=== PATIENT | male | born 1950 | race Caucasian/White ===

== ENCOUNTER 2020-05-01 | Outpatient (REF) | payer MEDICARE, SELFPAY ==
[2020-05-01 11:20] LABS: MANUAL DIFF FLAG NO
[2020-05-01 11:24] LABS: Basophils Absolute Auto 0.1 X10*3/uL (0.0-0.2); Eosinophils Absolute Auto 0.2 X10*3/uL (0.0-0.4); Hematocrit 33.8 % (42-52); Hemoglobin 11.1 g/dl (14.0-18.0); Imm Gran Abs Auto 0.02 X10*3/uL (0.00-0.03); Imm Gran Pct Auto 0.3 % (0.0-0.4); Lymphocytes Absolute Auto 1.2 X10*3/uL (1.2-4.9); Lymphocytes Percent Auto 20.1 % (20-40); Mean Corpuscular HGB Conc 32.8 g/dl (31.0-36.0); Mean Corpuscular Hemoglobin 29.1 pg (27.0-33.0); Mean Corpuscular Volume 88.7 fL (80-98); Mean Platelet Volume 12.3 fL (9.4-12.4); Monocytes Absolute Auto 0.5 X10*3/uL (0.1-1.2); Monocytes Percent Auto 9.1 % (2-11); Neutrophils Absolute Auto 3.9 X10*3/uL (2.0-8.3); Neutrophils Percent Auto 65.5 % (45-73); Platelet Count 141 X10*3/uL (160-400); Red Blood Count 3.81 X10*6/uL (4.60-5.80); White Blood Count 5.9 X10*3/uL (4.8-10.8)
[2020-05-01 11:48] LABS: Alanine Aminotransferase 21 U/L (0-40); Albumin Level 3.6 g/dL (3.5-5.0); Alkaline Phosphatase 109 U/L (39-117); Anion Gap 10 (12-20); Aspartate Amino Transferase 16 U/L (5-37); Blood Urea Nitrogen 22 mg/dL (9-16); Calcium 8.4 mg/dL (8.4-10.2); Carbon Dioxide 27 mmol/L (22-29); Chloride 108 mmol/L (96-108); Estimated Glomerular Filt Rate > 60; Glucose Fasting 88 mg/dL (60-99); Potassium 3.7 mmol/l (3.3-5.1); Sodium 141 mmol/L (135-145); Total Protein 5.9 g/dL (6.5-8.0)
[2020-05-01 12:11] LABS: Prostate Specific Antigen Scr 3.59 ng/mL (<0.05-4.0)
== END 2020-05-01 00:01 | disposition home or self-care (01) ==
LOC: HO.HSHHMC
PROVIDERS: Visit Provider Internal Medicine Interventional Cardiology
DX: I10 Essential (primary) hypertension (principal); Z12.5 Encounter for screening for malignant neoplasm of prostate; E78.5 Hyperlipidemia, unspecified; I25.10 Atherosclerotic heart disease of native coronary artery without angina pectoris
CPT/HCPCS: 36415; 80053; 84153; 85025

== ENCOUNTER 2020-05-12 | Outpatient (REF) | payer MEDICARE, SELFPAY ==
[2020-05-12 13:39] LABS: Iron 72 mcg/dL (45-160); Percent Iron Saturation 18 % (15-50); Total Iron Binding Capacity 395 mcg/dL (228-428); Unsaturated Iron Binding 323 ug/dL
[2020-05-12 14:48] LABS: Folate 5.1 ng/mL (> or = 4.0); Vitamin B12 285 pg/mL (200-900)
== END 2020-05-12 00:01 | disposition home or self-care (01) ==
LOC: HO.HSHHMC
PROVIDERS: Visit Provider Internal Medicine Interventional Cardiology
DX: D64.9 Anemia, unspecified (principal)
CPT/HCPCS: 82607; 82746; 83540

== ENCOUNTER 2020-05-25 15:27 | Emergency (ER) | payer MEDICARE, SELFPAY ==
[2020-05-25 15:35] VITALS: BP 150/62; BP 158/53; PULSE 57; PULSE 65; RESP 10; TEMP 36.6; O2SAT 100; O2SAT 98; BMI 29.1
[2020-05-25 16:24] VITALS: PULSE 65
--- NOTE | 2020-05-25 16:31 | ECG_ITS ---
Test Reason : A FIB Blood Pressure : / mmHG Vent. Rate : 063 BPM Atrial Rate : 062 BPM P-R Int : 000 ms QRS Dur : 114 ms QT Int : 440 ms P-R-T Axes : 000 088 052 degrees QTc Int : 450 ms Atrial fibrillation Intra-ventricular conduction delay Abnormal ECG When compared with ECG of 19-SEP-2015 21:07, Atrial fibrillation has replaced Sinus rhythm T wave inversion no longer evident in Inferior leads Referred By: Doyle Schneider Electronically Signed By:JESSICA STAHL MD
--- NOTE | 2020-05-25 16:32 | CT_ITS ---
EXAMINATION: CT HEAD WITHOUT CONTRAST CLINICAL INFORMATION: Fall. COMPARISON: None TECHNIQUE: Contiguous axial imaging was performed from the skull base to vertex without intravenous administration of contrast. This CT examination was performed using dose optimization techniques as appropriate, variously including the following: *Automated exposure control *Adjustment of mA and/or kV according to patient size (this includes techniques or standardized protocols for targeted exams where dose is matched to indication/reason for exam; i.e. extremities or head) *Use of iterative reconstruction technique DLP: 791 mGy-cm FINDINGS: There is no evidence of acute intracranial hemorrhage or territorial infarction. No abnormal mass effect or midline shift is seen. Parenchymal hypoattenuation with loss of tejada-white differentiation within the high left frontal lobe as well as within the posterior left occipital lobe, consistent with remote infarcts. Otherwise, the tejada-white differentiation is maintained. No extra-axial fluid collections are identified. Prominence of the ventricles and sulci, consistent with age-related atrophy. Hypoattenuation of the periventricular white matter, consistent with chronic microvascular ischemic disease. Focal soft tissue swelling in the region of the left orbit, consistent with a soft tissue contusion. No acute osseous abnormality. The mastoid air cells and visualized portions of the paranasal sinuses are well aerated. CT/CT head/brain wo con IMPRESSION: 1. No acute intracranial hemorrhage or mass effect. 2. Soft tissue swelling adjacent to the left orbit, which could represent a soft tissue contusion. No acute osseous abnormality. 3. Chronic infarcts within the high left frontal lobe and left occipital lobe. 4. Age-related atrophy and chronic microvascular ischemic disease.
--- NOTE | 2020-05-25 17:07 | ED_ITS ---
HPI - Fall General Chief Complaint: Fall Stated Complaint: FALL Time Seen by Provider: 05/25/20 16:22 Source: patient Mode of arrival: EMS Limitations: no limitations History of Present Illness HPI Narrative: patient from independent living place with history of AFib on Eliquis was walking and suddenly lost balance and fell patient remember falling hit his back of the trunk no significant head injury no headache no loss of consciousness no chest pain no palpitations no shortness of breath patient feels fine otherwise patient denies any chest pain MD complaint: fall Fall witnessed: yes, by living facility staff Place fall occurred: half-way/SNF Loss of consciousness: none Prolonged down time: no Symptoms prior to fall: none Context: tripped/slipped Location of injury: back Related Data Allergies Allergy/AdvReac Type Severity Reaction Status Date / Time lovastatin [LOVASTATIN] Allergy Unknown UNKNOWN Unverified 04/10/20 15:17 Review of Systems Review of Systems: REVIEW OF SYSTEMS: Pertinent positives and negatives are stated above in the history. GEN: no fevers, chills, fatigue HEENT: no nasal congestion, sore throat, ear pain NEURO: no headache, dizziness, focal weakness PULM: no cough, shortness of breath CV: no chest pain, palpitations, LE edema ABD: no abdominal pain, nausea, vomiting, diarrhea : no dysuria, urgency, frequency SKIN: no rash ROS otherwise negative x 10 PMFSH Past Medical History Medical History A-fib CVA (cerebral vascular accident) Heart valve prosthesis mechanical complication HTN (hypertension) Social History Social History Alcohol intake: never Smoking Status: Current every day smoker Use of substances other than those prescribed or required for medical reasons: No Advance Directives: Yes Advance Directives on File: Yes Advance Directives Date on File: 05/08/20 Physical Exam Vital Signs: Vital Signs: Vital Signs Temp Pulse Pulse Resp BP Pulse Ox 05/25/20 16:24 65 05/25/20 15:35 97.8 F 57 10 L 158/53 H 100 Body Mass Index 29.1 VITAL SIGNS: Reviewed. GENERAL: Well developed, well nourished, in no acute distress. HEAD: Normocephalic/atraumatic, cervical spine nontender with good range of movements EYES: PERRLA No pallor/icterus noted EARS: Ext canals without abnormality NOSE: Nares patent bilateral OROPHARYNX: Oral mucosa moist no oral lesions NECK: Supple, no adenopathy LUNGS: Normal breath sounds. No adventitious sounds or accessory muscle use CARDIOVASCULAR: irRegular rate and rhythm systolic ejection murmur at base, no JVD or lower extremity edema. ABDOMEN: Soft, non-tender, non-distended with bowel sounds. No rigidity. No guarding. No palpable masses or hernias noted MUSCULOSKELETAL: No tenderness, deformities, EXTREMITIES: No cyanosis or edema. SKIN: no rashes, ulcerations, jaundice, pallor, or petechiae NEUROLOGIC: Alert and oriented x 3. Strength and sensation to light touch were grossly intact Course Course Course Narrative: and feeling much better now ambulatory in the ER without any assistance no headache CT scan of the head is negative EKG is showing AFib with heart rate of 63 MDM - Fall Lab Data Result diagrams: 05/25/20 17:14 05/25/20 17:15 Labs: Lab Results 05/25/20 05/25/20 05/25/20 Range/Units 17:12 17:14 17:15 WBC 7.7 (4.8-10.8) X10*3/uL RBC 4.00 L (4.60-5.80) X10*6/uL Hgb 11.6 L (14.0-18.0) g/dl Hct 35.3 L (42-52) % MCV 88.3 (80-98) fL MCH 29.0 (27.0-33.0) pg MCHC 32.9 (31.0-36.0) g/dl RDW 13.2 (11.0-16.0) % Plt Count 141 L (160-400) X10*3/uL MPV 13.0 H (9.4-12.4) fL Immature Gran % (Auto) 0.3 (0.0-0.4) % Neut % (Auto) 78.4 H (45-73) % Lymph % (Auto) 10.7 L (20-40) % [place] % (Auto) 7.1 (2-11) % Eos % (Auto) 2.6 (0-4) % Baso % (Auto) 0.9 (0-2) % Lymph # (Auto) 0.8 L (1.2-4.9) X10*3/uL [place] # (Auto) 0.5 (0.1-1.2) X10*3/uL Eos # (Auto) 0.2 (0.0-0.4) X10*3/uL Baso # (Auto) 0.1 (0.0-0.2) X10*3/uL Abs Immat Gran (auto) 0.02 (0.00-0.03) X10*3/uL Absolute Neuts (auto) 6.0 (2.0-8.3) X10*3/uL Absolute Nucleated RBC 0.000 (0.0-0.012) X10*3/uL Nucleated RBC % (auto) 0.0 (0.0-0.2) /100WBC PT 14.5 H (10.8-13.0) SEC INR 1.2 H (0.9-1.1) APTT 33.3 (24.1-38.0) SEC Sodium 142 (135-145) mmol/L Potassium 4.0 (3.3-5.1) mmol/l Chloride 110 H (96-108) mmol/L Carbon Dioxide 25 (22-29) mmol/L Anion Gap 11 L (12-20) BUN 19 H (9-16) mg/dL Creatinine 1.23 (0.5-1.4) mg/dL Estim Creat Clear Calc 68.5 Estimated GFR 58 Random Glucose 98 (60-115) mg/dL Calcium 7.9 L (8.4-10.2) mg/dL ECG Data Attestation: I personally reviewed and interpreted this ECG as follows: Prior ECG tracings: available for review Interpretation: heart rate [address] atrial fibrillation no acute ST T wave changes normal axis Discharge Plan Discharge Patient Disposition: Home, Self-Care
[2020-05-25 18:08] LABS: MANUAL DIFF FLAG NO
[2020-05-25 18:11] LABS: Basophils Absolute Auto 0.1 X10*3/uL (0.0-0.2); Basophils Percent Auto 0.9 % (0-2); Eosinophils Absolute Auto 0.2 X10*3/uL (0.0-0.4); Eosinophils Percent Auto 2.6 % (0-4); Hematocrit 35.3 % (42-52); Hemoglobin 11.6 g/dl (14.0-18.0); Imm Gran Abs Auto 0.02 X10*3/uL (0.00-0.03); Imm Gran Pct Auto 0.3 % (0.0-0.4); Lymphocytes Absolute Auto 0.8 X10*3/uL (1.2-4.9); Lymphocytes Percent Auto 10.7 % (20-40); Mean Corpuscular HGB Conc 32.9 g/dl (31.0-36.0); Mean Corpuscular Volume 88.3 fL (80-98); Monocytes Absolute Auto 0.5 X10*3/uL (0.1-1.2); Monocytes Percent Auto 7.1 % (2-11); Neutrophils Percent Auto 78.4 % (45-73); Platelet Count 141 X10*3/uL (160-400); Red Cell Distribution Width 13.2 % (11.0-16.0); White Blood Count 7.7 X10*3/uL (4.8-10.8)
[2020-05-25 18:16] LABS: INTERNATIONAL NORM RATIO 1.2 (0.9-1.1); Prothrombin Time 14.5 SEC (10.8-13.0)
[2020-05-25 18:19] LABS: Partial Thromboplastin Time 33.3 SEC (24.1-38.0)
--- NOTE | 2020-05-25 18:20 | PC.NURSE ---
workup unremarkable. pt sitting up eating sandwich. per provider, pt to be discharged if able to ambulate.
[2020-05-25 18:33] LABS: Anion Gap 11 (12-20); Blood Urea Nitrogen 19 mg/dL (9-16); Calcium 7.9 mg/dL (8.4-10.2); Carbon Dioxide 25 mmol/L (22-29); Chloride 110 mmol/L (96-108); Creatinine Clr Calc Pharmacy 68.5; Estimated Glomerular Filt Rate 58; Glucose Random 98 mg/dL (60-115); Sodium 142 mmol/L (135-145)
--- NOTE | 2020-05-25 19:20 | PC.NURSE ---
pt ambulatory down hallway to bathroom with steady gait. requested a second sandwich and soda.
[2020-05-25 19:28] LABS: Glucose Urine UA NEG (NEG); Leukocyte Esterase Urine NEG (NEG); Nitrite Urine NEG (NEG); PH 5.5 (5.0-8.0); Specific Gravity - Urine >= 1.030 (1.005-1.025); Urine Blood NEG (NEG); Urine Ketones NEG (NEG); Urine Protein NEG (NEG-TRACE)
--- NOTE | 2020-05-25 19:34 | PC.NURSE ---
pt needs transportation home, requesting chair van for patient.
[2020-05-25 19:38] VITALS: BP 156/52; PULSE 72; RESP 16; O2SAT 98
[2020-05-25 19:39] LABS: Appearance Urine CLEAR; Color Urine YELLOW
== END 2020-05-25 20:40 | disposition home or self-care (01) ==
PROVIDERS: Emergency Provider Internal Medicine; PCP Internal Medicine Interventional Cardiology
DX: S39.92XA Unspecified injury of lower back, initial encounter (principal); M54.6 Pain in thoracic spine; I48.91 Unspecified atrial fibrillation; G44.309 Post-traumatic headache, unspecified, not intractable; W01.0XXA Fall on same level from slipping, tripping and stumbling without subsequent striking against object, initial encounter; Y93.9 Activity, unspecified; Y92.099 Unspecified place in other non-institutional residence as the place of occurrence of the external cause; Y99.9 Unspecified external cause status; Z79.01 Long term (current) use of anticoagulants; Z79.899 Other long term (current) drug therapy; F17.200 Nicotine dependence, unspecified, uncomplicated; Z71.6 Tobacco abuse counseling
CPT/HCPCS: 36415; 70450; 80048; 81003; 85025; 85610; 85730; 93005; 99284